=== PATIENT | male | born 1970 | race Caucasian/White ===

== ENCOUNTER → 2021-04-08 08:52 | Outpatient (POV) | payer OTHER, SELFPAY | PROVIDERS: Visit Provider Dermatology | DX: Z00.00 Encounter for general adult medical examination without abnormal findings (principal) ==

== ENCOUNTER → 2021-05-12 15:49 | Outpatient (CLI) | payer OTHER, SELFPAY | PROVIDERS: PCP Family Medicine; Visit Provider Family Medicine | DX: Z20.822 Contact with and (suspected) exposure to COVID-19 (principal) | CPT/HCPCS: U0003 ==

== ENCOUNTER → 2021-05-27 16:10 | Outpatient (CLI) | payer OTHER, SELFPAY ==
--- NOTE | 2021-05-27 16:14 | XR_ITS ---
PROCEDURE: XR FOOT LT MIN 3V CLINICAL INDICATION: PAIN OF LT HEEL COMPARISON: No exams were available for comparison FINDINGS: No fracture or dislocation. No lytic or blastic change. There is normal mineralization. The joint spaces are well-preserved. No significant degenerative/arthritic changes. No erosive changes evident. Other findings:There is a tiny calcaneal spur IMPRESSION: No acute findings. Dictated by: Onesimo John MD 05/27/2021 18:06 Onesimo John MD in [place] 05/27/2021 18:06
== END ==
PROVIDERS: PCP Family Medicine; Visit Provider Family Medicine
DX: M79.672 Pain in left foot (principal)
CPT/HCPCS: 73630

== ENCOUNTER → 2021-06-02 10:39 | Outpatient (CLI) | payer OTHER, SELFPAY | PROVIDERS: PCP Family Medicine; Visit Provider Nurse Practitioner | DX: Z20.822 Contact with and (suspected) exposure to COVID-19 (principal) | CPT/HCPCS: C9803; U0003; U0005 ==

== ENCOUNTER → 2021-07-21 08:10 | Outpatient (CLI) | payer OTHER, SELFPAY | PROVIDERS: PCP Family Medicine; Visit Provider Nurse Practitioner | DX: Z20.822 Contact with and (suspected) exposure to COVID-19 (principal) | CPT/HCPCS: C9803; U0003; U0005 ==

== ENCOUNTER 2021-07-23 06:32 | Day surgery (SDC) | payer OTHER, SELFPAY ==
[2021-07-23 06:48] VITALS: BMI 34.7
[2021-07-23 06:51] VITALS: BP 135/94; PULSE 98; RESP 18; TEMP 36.1; O2SAT 97
[2021-07-23 07:23] VITALS: O2SAT 100
--- NOTE | 2021-07-23 07:30 | P.PN_ITS ---
[facility] Anesthesia Checklist - Patient Identification Patient Identification: Arm Band - Structural Data Admitted From: Home Planned Operative Procedure/s: colonoscopy Consent for Planned Operative Procedure(s) Verified: Yes Verified Documents: Surgical Consent, History and Physical - NPO Status Verified Time NPO: 00:00 - Additional verifications Anesthesia Reactions: No - Airway Assessment C-Spine Mobility Assessed: Yes (mp2) TMJ Mobility Assessed: Yes Dentition: Good Dentition - Neurological Assessment Level of Consciousness: Awake, Alert - Anesthesia Plan Anesthesia Risk discussed: Yes Anesthesia Plan: Verified ASA Class: II Anesthesia Type: MAC [facility] History I have reviewed the patient's past medical history: Yes Medical History: Reports:: Arrhythmia, Hypertension, Palpitations Denies:: Cancer, Diabetes Mellitus Type 1, Diabetes Mellitus Type 2, Internal Pacemaker, MRSA, Seizures *Have you ever received a pneumonia vaccine?: No *Have you received a flu vaccine this season?: Yes Anesthesia experience/problems:: nac Other Surgeries: Yes: Other. No: Pacemaker Amputation: No Fractures: No - *Social History Last grade of school completed: High school graduate Smoking Status: Never smoker Alcohol Intake: current Alcohol Intake Frequency:: holidays/special occasions only Substance Use Type: denies use *Occupational Status:: employed *Travel in the last 8 weeks: None Family Hx:: No significant family history
--- NOTE | 2021-07-23 07:46 | HMH.SCOPE ---
- Procedure: Date: 07/23/21 Patient Date of :: 1970 Procedure Performed:: Colonoscopy to terminal ileum with polypectomy by snare and biopsy forceps Indications:: 51-year-old male referred by Dr. Rodriguez for initial screening colonoscopy. Asymptomatic. He does have an uncle who had colon cancer. Performing Provider:: Justus Cronin MD Referring Provider:: Saurabh Rodriguez MD Sedation:: MAC sedation Procedure:: Patient was positioned in lateral decubitus position. Adequate intravenous sedation was achieved. Digital examination was performed which revealed normal sphincter tone. Variable stiffness Olympus colonoscope was inserted via the anus. It was advanced to the cecum. Colonic preparation was good and visualization was good. Within the cecum behind the ileocecal valve there was a moderate adenomatous polyp measuring 8 to 10 mm. This was removed with cold cutting snare. Colonoscope was able to be advanced briefly short distance into the ileocecal valve. Colonoscope was slowly withdrawn through the colon with careful surveillance. Within the sigmoid colon there were 2 small to moderate pedunculated adenomatous appearing polyps removed with cold snare. In the rectosigmoid colon there was a sessile small adenomatous appearing polyp removed with cold snare. There was additional hyperplastic appearing polyp removed with biopsy forceps. Retroflexion within the rectum revealed nonpathologic internal hemorrhoids. Colonoscope was withdrawn. Findings:: Polyps as noted above Recommendations:: Likely repeat colonoscopy 3 years Complications:: None immediately apparent Estimated blood obtained (mL): 3
[2021-07-23 07:48] VITALS: BP 148/94; PULSE 92; RESP 18; TEMP 36.4; O2SAT 96
[2021-07-23 07:58] VITALS: BP 158/111; PULSE 94; RESP 18; O2SAT 94
[2021-07-23 08:08] VITALS: BP 163/100; PULSE 92; RESP 16; O2SAT 97
[2021-07-23 08:18] VITALS: BP 174/108; PULSE 94; RESP 16; O2SAT 98
== END 2021-07-23 08:20 | disposition home or self-care (01) ==
LOC: OUTP 06:34
PROVIDERS: PCP Family Medicine; Visit Provider Surgery
PROC: 0DJD8ZZ Inspection of Lower Intestinal Tract, Via Natural or Artificial Opening Endoscopic (ICD-10-PCS; CPT 45385; principal; 2021-07-23 07:30)
DX: Z12.11 Encounter for screening for malignant neoplasm of colon (principal); K63.5 Polyp of colon; I49.9 Cardiac arrhythmia, unspecified; I10 Essential (primary) hypertension; R00.2 Palpitations; Z79.899 Other long term (current) drug therapy
CPT/HCPCS: 45385; 45380; J2405; J2710

== ENCOUNTER → 2021-07-24 08:01 | Outpatient (CLI) | payer OTHER, SELFPAY | PROVIDERS: PCP Family Medicine; Visit Provider Nurse Practitioner | DX: Z20.822 Contact with and (suspected) exposure to COVID-19 (principal); U07.1 COVID-19 | CPT/HCPCS: C9803; U0003; U0005 ==

== ENCOUNTER → 2021-10-27 13:32 | Outpatient (CLI) | payer OTHER, SELFPAY | PROVIDERS: PCP Family Medicine; Visit Provider Nurse Practitioner | DX: U07.1 COVID-19 (principal) | CPT/HCPCS: C9803; U0003; U0005 ==

== ENCOUNTER → 2023-08-04 12:05 | Outpatient (CLI) | payer BC, OTHER, SELFPAY | PROVIDERS: PCP Family Medicine; Visit Provider Internal Medicine | DX: I49.3 Ventricular premature depolarization (principal); R06.00 Dyspnea, unspecified; R94.31 Abnormal electrocardiogram [ECG] [EKG] | CPT/HCPCS: 93270 ==

== ENCOUNTER → 2023-08-10 09:14 | Outpatient (POV) | payer BC, SELFPAY | PROVIDERS: PCP Family Medicine; Visit Provider Dermatology | DX: Z00.00 Encounter for general adult medical examination without abnormal findings (principal) ==

== ENCOUNTER → 2023-08-18 06:58 | Outpatient (CLI) | payer BC, OTHER, SELFPAY ==
--- NOTE | 2023-08-18 07:01 | CA_ITS ---
APPROVED REPORT EXAM: Comprehensive 2D, Doppler, and color-flow Echocardiogram Asphalt Paving Foreman: RICK Velez, RVS Ht: 6 ft 2 in Wt: 280lbs BSA: 2.51 BP: 128/93 mmHg Rhythm: PVC's Indications: PVC's, Old MA per abnormal EKG, Dyspnea, fatigue 2D Dimensions IVSd 0.96 cm LVEF (Visual) 61.40 % PWd 0.89 cm LA Volume 62.10 mL LVDd 4.62 cm LA Volume Index 24.20 mL/m2 (M/F) 16-34 LVDs 3.10 cm Left Atrium 3.70 cm M-Mode Dimensions RVDd 2.39 cm (0.9-2.6) LA Diam 3.90 cm (1.9-4.0) LVDd 5.02 cm (3.5-5.7) LVDs 3.42 cm (3.5-5.7) IVSd 0.78 cm (0.6-1.1) PWd 0.78 cm (0.6-1.1) EF (Teich) 59.70% EPSs 0.86 cm FS 31.90% EDV (Teich) 119.30 mL TAPSE 1.61 (<1.7) ESV (Teich) 48.10 mL LV Diastology E Decel Time 143 (160-240 msec) E/A Ratio 1.08 MED A' 11.70 cm/s LAT A' 12.20 cm/s Aortic Valve ANN Index 1.04 cm2/m2 AoV Peak Tavon. 140.0 (50-130 cm/s) AO Peak GR. 7.90 mmHg AO Mean GR. 3.90 (<5 mmHg) AO VTI 24.5 (18-25 cm) ANN (VTI) 2.67 (2.5-4.5 cm2) Mitral Valve MV A Velocity 74.0 (40-130 cm/s) E/A Ratio 1.08 Tricuspid Valve TR P. Velocity 203.00 cm/s RAP Estimate 10.00 mmHg RVSP 26.50 mmHg Left Ventricle The left ventricle is normal size. The left ventricular systolic function is normal. The left ventricular ejection fraction is within the normal range. There is normal left ventricular wall thickness. There is moderate hypokinesis of the basal inferior and inferolateral LV shaw. The left ventricular diastolic function is normal. LVEF is 55%. Right Ventricle The right ventricle is normal size. The right ventricular systolic function is normal. Atria The left atrium size is normal. The right atrium size is normal. The interatrial septum is not well-visualized. Aortic Valve The aortic valve opens well. There is no aortic valvular stenosis. Trace aortic regurgitation. Mitral Valve The mitral valve is normal in structure. No evidence of mitral valve stenosis. Trace mitral regurgitation. Tricuspid Valve The tricuspid valve leaflets are thin and pliable. Trace tricuspid regurgitation. There is insufficient TR jet to estimate RVSP. Pulmonic Valve The pulmonary valve is normal in structure. Trace pulmonic regurgitation. Great Vessels The aortic root is normal in size. The ascending aorta is normal in size. IVC is normal in size and collapses >50% with inspiration. Pericardium There is no pericardial effusion. Other Information Study Quality: Fair Conclusion Normal biventricular systolic function. Moderate hypokinesis of the basal inferior and inferolateral LV shaw. No significant valvular stenosis or regurgitation. Electronically signed by : Debbie Norman MD 08/21/2023 21:22:04
--- NOTE | 2023-08-18 08:25 | NM_ITS ---
APPROVED REPORT Exam: Nuclear Stress Test Indication: palpiatations..fatigue..high bp Patient Location: Outpatient Stress Tech: Sandra Griffin [place] Tech:LOKI Ledezma RT(R)(N) Ht: 6 ft 2 in Wt: 280 lbs HR: 96 bpm BP: 132/89 mmHg BSA: 2.51 m2 BMI: 35.9 History: palpiatations..fatigue..high bp Procedure: Patient exercised on Cali protocol 9:30 minutes and sec, resting heart rate 96 bpm, resting blood pressure 132/89 mmHg, with exercise maximum heart rate achived was 155 bpm which is 92 % of the maximum predicted heart rate and blood pressure was 216/84 mmHg. Test was stopped due to fatigue. Patient denied any complaint of chest pain. Patient has exercise capacity, achieved 10.1 METs of workload on treadmill, the blood pressure response to exercise was . Cardiac Stress and Resting SPECT Images: Cardiac Stress and Resting SPECT images were obtained using technetium 99m Myoview 32.5 mCi stress and 10.42 mCi at rest. Raw images demonstrate significant soft tissue overlap with the cardiac borders. This may affect the diagnostic interpretation of the study findings. Resting and stress imaging in supine position demonstrate a small sized, moderate, fixed perfusion defect in the basal inferior LV wall. This is no longer visualized with prone stress imaging. Findings are suggestive of diaphragmatic attenuation. Gated imaging demonstrates normal global and regional LV systolic function. LVEF is calculated at 74%. Conclusion: Diaphragmatic attenuation is present. No definite evidence of fixed or reversible perfusion defect. Gated imaging demonstrates normal global and regional LV systolic function. LVEF is calculated at 74%. Electronically signed by : Debbie Norman MD 08/19/2023 15:24:57
--- NOTE | 2023-08-18 09:26 | CA_ITS ---
APPROVED REPORT Exam: Exercise Treadmill Technologist: Sandra Rosario, Ht: 6 ft 2 in Wt: 292 lbs BSA: 2.55 m2 HR: 96 bpm BP: 120/84 mmHg Rhythm: NSR Medical History Medications: HCTZ,,,,, TAMSULOSIN,,,,, Vitamin D2,,,,, CetIRIZINE,,,,, AZelastine,,,,, Amlodipine-Benazepril,,,,, Qnasl,,,,, Stress Test Details Test: Cali HR Resting HR: 96 bpm Max Heart Rate (APMHR): 168 bpm Max HR Achieved: 155 bpm Target HR (85% APMHR): 143 bpm % of APMHR: 92 Recovery HR: 115 bpm HR response to stress: Normal HR response to stress BP Resting BP: 132.0/89.0 mmHg Max BP: 216.0/84.0 mmHg Recovery BP: 130.0/78.0 mmHg BP response to stress: Abnormal hypertensive response to stress. ECG Resting ECG: NSR, ST-T abns inferiorly & laterally Stress ECG: < 0.[address] depression Arrhythmia: PACs, PVCs Recovery ECG: Return to baseline within 3 minutes of recovery Recovery Arrhythmia: PACs, PVCs Clinical Exercise duration: 09:30 min Highest Stage Achieved: IV Exercise capacity: 10.1 METs Overall Exercise Capacity for Age: Average Stress ECG Conclusion The patient was able to exercise for a total of 9 minutes, 30 seconds. He has average exercise capacity compared to age and sex matched peers. He has normal HR, but exaggerated hypertensive BP, response to exercise Max HR: 155 % of PM: 92% Max BP: 216/84 METs: 10.1 Test stopped due to: SOA, fatigue Symptoms: No CP. Arrhythmias/Ectopy: Occasional PACs, PVCs ST-T Changes: < 0.[address] depression Conclusion: Average exercise capacity. Hypertensive response to exercise. Baseline ECG abnormalities, but no significant changes at peak stress. Myoview images reported separately. Test Summary REST . . . . . . . Sitting REST . . . . . . . Standing REST 02:58 0.0 0.0 96 . 132/ 89 . . Stage 1 01:00 10.0 1.7 108 . . . . Stage 1 02:00 10.0 1.7 114 . . . . Stage 1 03:00 10.0 1.7 117 . 166/ 86 . . Stage 2 01:00 12.0 2.5 126 . . . . Stage 2 02:00 12.0 2.5 130 . . . . Stage 2 03:00 12.0 2.5 133 . 204/ 84 . . Stage 3 01:00 14.0 3.4 142 . . . . Stage 3 02:00 14.0 3.4 147 . . . . Stage 3 . . . . . . . Myoview Injected Stage 3 03:00 14.0 3.4 149 . 216/ 84 . . Stage 4 00:30 16.0 4.2 155 . . . Stop exercise at 09:30 RECOVERY 01:00 0.0 0.0 142 . . . . RECOVERY 02:00 0.0 0.0 128 . . . . RECOVERY 03:00 0.0 0.0 123 . 138/ 84 . . RECOVERY 04:00 0.0 0.0 118 . 138/ 84 . . RECOVERY 05:00 0.0 0.0 116 . 143/ 81 . . RECOVERY 05:42 0.0 0.0 116 . 130/ 78 . . Electronically signed by : Debbie Norman MD 08/19/2023 15:23:08
== END ==
PROVIDERS: PCP Family Medicine; Visit Provider Internal Medicine
DX: I49.3 Ventricular premature depolarization (principal); R06.00 Dyspnea, unspecified; R94.31 Abnormal electrocardiogram [ECG] [EKG]
CPT/HCPCS: 78452; 93017; 93018; 93306; A9502

== ENCOUNTER 2023-09-21 07:54 | Outpatient (CLI) | payer BC, OTHER, SELFPAY ==
[2023-09-21] VITALS (8 sets, daily range): BP systolic 99–145; BP diastolic 60–105; PULSE 65–83; RESP 18; TEMP 36.2; O2SAT 92–98; BMI 36.6
--- NOTE | 2023-09-21 07:54 | CT_ITS ---
APPROVED REPORT Button Spindler: CLINICAL INDICATION Chest Pain TECHNIQUE Image Acquisition: A 128 slice MDCT scanner ([place] View) was used for data acquisition. A noncontrast coronary calcium scan was performed. A CT attenuation threshold of 130 Hounsfield units (HU) was used for the detection of calcium in contiguous voxels of 1 sq mm in area to be counted as individual lesions. Bolus tracking in the ascending aorta with a threshold of 180 HU was performed. Immediately afterwards, ECG synchronized cardiac CT was then performed from the cardiac base to apex using retrospective gating with ECG tube current modulation. A total of 85 mL of Isovue 370 mg/mL contrast medium was administered at 5 mL/sec followed by a saline flush using a biphasic injection protocol. A tube voltage of 120 KVp was used. The patient received the following medications prior to the cardiac CT. 100 mg of oral metoprolol 15 mg of intravenous metoprolol 0.8 mg of sublingual nitroglycerin The average heart rate at the time of acquisition was 63 bpm and regular. Image Reconstruction Transaxial images were reconstructed at 0.67 mm slide thickness. Data was reviewed interactively on an advanced workstation capable of 2 and 3-dimensional displays in all conventional reconstruction formats, including multiplanar reformations, maximum intensity projections, curved multiplanar reformations, and volume rendered reconstructions. When applicable, selected routine images describing the relevant coronary anatomy and pathology were saved and sent to PACS. Complications None Technical Quality Overall image quality was good. Coronary artery opacification was adequate. Total DLP (Dose-Length Product) is 1072.6 mGy-cm. The reported value represents the total of one or more individual components during the CT acquisition of this date and at this time, and as such, the same value may appear in more than one CT report depending on the interpreting/reporting physicians. COMPARISON None FINDINGS CT Coronary Calcium Scoring LMA (Left Main Artery) = 0 LAD (Left Anterior Descending) = 0 LCX (Left Coronary Circumflex) = 0 RCA (Right Coronary Artery) = 0 Total Calcium Score = 0 using the AJ-130 method. The interpretation of the calcium heart score is based on the following continuum*: 0 = no calcified plaque detected (risk of coronary artery disease is very low ??? less than 5%) 1-10 = calcium detected in extremely minimal levels (risk of coronary diseases is still low ??? less than 10%) 11-100 = mild levels of plaque detected with certainty (mild or minimal narrowing of heart arteries is likely) 101-400 = definite,at least moderate levels of plaque detected (relatively high risk of a heart attack within 3-5 years) >401-999 = extensive levels of plaque detected (high risk of heart attack, high levels of vascular disease are present, high likelihood of at least one significant coronary narrowing) *The calcium heart score quantifies the burden of coronary calcification/plaque in the coronary arteries. The calcium heart score is not able to evaluate the presence or burden of non-calcified (i.e. soft) plaque. There is no identifiable calcification in the aortic valve, mitral annulus or mitral valve, pericardium, or myocardium. Coronary CT Angiography The coronary arterial system is right dominant. Quantitative Stenosis Grading: Left Main (LM): The left main originates normally from the left sinus of Valsalva. The LM trifurcates into the left anterior descending artery and left circumflex artery. The LM is patent with no evidence of atherosclerosis. Left Anterior Descending (LAD) and Diagonal Branches: The LAD gives off 3 diagonal branches. The LAD and its branches are patent with no evidence of atherosclerosis. There is a mid-LAD bridge measuring 8 mm in length and 0.5 mm in depth. Ramus-intermedius (RI): The RI is patent. Left Circumflex (LCX) and Obtuse Marginals (OM): The LCX gives off 1 Obtuse Marginal (OM) branch. The LCX and its branches are patent with no evidence of atherosclerosis. Right Coronary Artery (RCA): The RCA originates normally from the right sinus of Valsalva. The RCA gives off a posterior descending artery (PDA) and posterolateral (PL) branches. The RCA and its branches are patent with no evidence of atherosclerosis. Non-Coronary Cardiac Findings: Analysis of the left ventricular (LV) structure and function was performed after 3-D reconstruction of the LV from axial images, with user-corrected automatic contouring for assessment of LV volumes and user-defined reconstruction from oblique planes for measurement of 3-D cardiac structure and function. LVEDV: 195 mL LVESV: 94 mL SV: 101 mL LVEF: 52% -The left ventricle is normal in size with normal left ventricular systolic function. -There is a distal left atrial appendage filling defect (true filling defect vs. inadequate contrast filling in the distal IZAIAH). Two right pulmonary veins and two left pulmonary veins drain normally into the left atrium. -No pericardial thickening or calcification. -Central and branch pulmonary arteries in the [id number] are unremarkable. -Thoracic aorta within the visualized thoracic aortic-branches in the [id number] is unremarkable. Extracardiac Structures No significant extra-cardiac findings. IMPRESSION -No coronary calcification with an Agatston score = 0 using the AJ-130 method. -No evidence of significant flow-limiting atherosclerosis of the coronary arteries. -Mid-LAD bridge measuring 8 mm in length and 0.5 mm in depth. -CAD-RADS 0. Management recommendations per ACC/AHA guidelines*, as clinically appropriate. -No significant non-coronary cardiac findings in the visualized segments of the chest. -Distal left atrial appendage filling defect (likely inadequate contrast filling in the IZAIAH due to timing of contrast administration, but cannot rule out IZAIAH thrombus). *Recommendations: CAD RADS 0: Reassurance. Consider non-atherosclerotic causes of chest pain. CAD RADS 1: Consider non-atherosclerotic causes of chest pain. Consider preventive therapy and risk factor modification. CAD RADS 2: Consider non-atherosclerotic causes of chest pain. Consider preventive therapy and risk factor modification, particularly for patients with nonobstructive plaque in multiple segments. CAD RADS 3: Consider further functional testing. Consider symptom-guided anti-ischemic and preventive pharmacotherapy as well as risk factor modification per published guideline statements. CAD RADS 4A: Consider further functional testing or invasive coronary angiography with revascularization per published guideline statements. Consider symptom-guided anti-ischemic and preventive pharmacotherapy as well as risk factor modification per published guideline statements. CAD RADS 4B: Invasive coronary angiography recommended with revascularization per published guideline statements. Consider symptom-guided anti-ischemic and preventive pharmacotherapy as well as risk factor modification per published guideline statements. CAD RADS 5: Consider invasive angiography and/or viability assessment with revascularization per published guideline statements. Consider symptom-guided anti-ischemic and preventive pharmacotherapy as well as risk factor modification per published guideline statements. CRITICAL RESULT None COMMUNICATION Per this written report The coronary and cardiac findings of this CCTA were reviewed, reported, and signed by Regan Norman MD (Underwater Roboticist) Conclusion Electronically signed by : Debbie Norman MD 09/22/2023 12:58:20
[2023-09-21] MEDS: METOPROLOL TARTRATE 50MG TABLET 100 MG PO (08:30)
[2023-09-21 08:46] LABS: Anion Gap 6.3 mEq/L (5-15); Blood Urea Nitrogen 8 mg/dl (9-20); Calcium 8.2 mg/dl (8.4-10.2); Carbon Dioxide 34 mmol/L (22.0-30.0); Chloride 97 mmol/L (98-107); Creatinine Clearance Estimated 176 mL/min (50-200); Estimated Glomerular Filt Rate 89 ml/min (>60); GFR (African American) 107 ML/MIN (>60); Glucose 116 mg/dl (74-100); Potassium 3.3 mmoL/L (3.5-5.1); Sodium 134 mmol/L (136-145)
[2023-09-21] MEDS: METOPROLOL TARTRATE 5MG/5ML VIAL 5 MG IV ×3 (09:23→09:53)
[2023-09-21] MEDS: NITROGLYCERIN 0.4MG SL TABLET 0.800000000000000044 MG SL (09:40)
[2023-09-21] MEDS: 0.9 % SODIUM CHLORIDE 50 ML VIAL IV (10:04)
[2023-09-21] MEDS: IOPAMIDOL-370 (76%);100ML BOTTLE 85 ML IV (10:04)
[2023-09-21] MEDS: SODIUM CHLORIDE 0.9% 10ML SYR (RAD ONLY) 10 ML IV (10:04)
== END 2023-09-21 23:59 | disposition home or self-care (01) ==
PROVIDERS: PCP Family Medicine; Visit Provider Internal Medicine
DX: R06.09 Other forms of dyspnea (principal); R94.31 Abnormal electrocardiogram [ECG] [EKG]; I49.3 Ventricular premature depolarization; I10 Essential (primary) hypertension; R93.1 Abnormal findings on diagnostic imaging of heart and coronary circulation
CPT/HCPCS: 75571; 75574; 80048; Q9967

== ENCOUNTER 2023-11-09 09:38 | Outpatient (POV) | payer BC, SELFPAY | END 2023-11-09 23:59 | disposition home or self-care (01) | LOC: SC 09:38 | PROVIDERS: PCP Family Medicine; Visit Provider Dermatology | DX: Z00.00 Encounter for general adult medical examination without abnormal findings (principal) ==

== ENCOUNTER 2024-03-31 06:23 | Day surgery (SDC) | payer BC, SELFPAY ==
[2024-03-29 13:28] VITALS: BMI 32.7
[2024-03-31] VITALS (7 sets, daily range): BP systolic 100–117; BP diastolic 56–69; PULSE 69–83; RESP 12–18; TEMP 36.2–36.6; O2SAT 92–97
[2024-03-31] MEDS: LACTATED RINGERS 1000ML 1,000 ML 25 ML IV (06:49)
--- NOTE | 2024-03-31 07:07 | P.PNANES_ITS ---
[facility] Disclaimer: The information contained in this section may have been updated after the patient was seen, as this information can be updated by other users. Medical History Adrenal nodule Kidney stone PVC (premature ventricular contraction) History of COVID-19 Allergies Regional wall motion abnormality of heart Surgical History Hx of vasectomy Family History Other Colon cancer Family history of stroke Social History Smoking Status: Never smoker alcohol intake: never substance use type: denies use current occupational status: retired Travel in the last 8 weeks: None caffeine: Yes [facility] Anesthesia Checklist Patient Identification Patient Identification: Arm Band, Family and Verbal (Name & ) Structural Data Admitted From: Home Planned Operative Procedure/s: Colonoscopy Consent for Planned Operative Procedure(s) Verified: Yes Verified Documents: Surgical Consent and History and Physical NPO Status Verified Time NPO: 03:00 Chart Verification Results Verified: BMP and ECG Additional verifications Patient : No Anesthesia Reactions: No Hx Blood Transfusions: No Blood Transfusion Reaction: No Cardiovascular Assessment Heart Sounds: S1 & S2 Pulse Rhythm: Irregular Peripheral Edema: No Airway Assessment Mallampati Score:: Class II C-Spine Mobility Assessed: Yes (FROM) TMJ Mobility Assessed: Yes Dentition: Good Dentition (Nothing loose per pt.) Neurological Assessment Level of Consciousness: Awake, Alert, Appropriate and Follows Commands Hx Seizures: No Numbness or tingling in extremities: No Anesthesia Plan Anesthesia Risk discussed: Yes Anesthesia Plan: Verified ASA Class: II Anesthesia Type: MAC
--- NOTE | 2024-03-31 07:12 | HMH.SCOPE ---
Procedure: Date: 03/31/24 Patient Date of :: 1970 Procedure Performed:: Total colonoscopy to terminal ileum with multiple polypectomy Indications:: Patient is a 53 yo male who underwent colonoscopy on 07/23/21 as initial screening colonoscopy. He had an 8-10mm tubular adenoma in the cecum and a tubular adenoma in the sigmoid colon. Recommendation was for repeat colonoscopy within 3 years. However, in the interim the patient's mother had developed aggressive widespread colon cancer which lead to her demise. Performing Provider:: Justus Cronin MD Referring Provider:: Srikanth Mesa MD Sedation:: MAC Sedation Procedure:: Patient history was obtained and appropriate physical examination was performed. Patient's medications and allergies were reviewed. Informed consent was obtained after explaining the benefits, alternatives, and risks of the procedure including, but not limited to, bleeding, perforation, missed lesions, and adverse reaction to anesthesia medications. Patient was transported to endoscopy procedure room. Patient was connected to monitoring devices. Throughout the procedure the patient's blood pressure, pulse, and oxygen saturations were monitored continuously. Patient identification and planned procedure were verified by the staff. Patient was positioned in lateral decubitus position. Digital anorectal exam was performed. Variable stiffness Olympus colonoscope was inserted and advanced under direct visualization to the cecum. Adequacy of the colonic preparation was noted. The colonoscope was advanced a short distance into the ileocecal valve. The colonoscope was then slowly withdrawn while carefully examining the color, texture, anatomy, and integrity of the mucosoa circumferentially. Within the rectum retroflexion was performed. Colonoscope was then withdrawn. IMPRESSION: There was some redundancy to the sigmoid colon. Colonoscope was advanced to ileocecal valve. In the cecum there was a sessile adenomatous polyp removed with cold snare. In the ascending colon near the hepatic flexure there were 3 small polyps removed with biopsy forceps. In the descending colon there was an area along the ridge of mucosal irregularity. Initially this was biopsied but then it was felt that this was possibly adenomatous. It was raised with Eleview injection. Then removed with hot snare. Limited amount of Betty ink was injected submucosally to daiana the area. Additional polypoid tissue was removed with biopsy forceps. There was some minor oozing and hemoclip was deployed to insure good hemostasis. In the descending colon there was a small polyp removed with biopsy forceps. In the proximal sigmoid colon there was a small polyp removed with biopsy forceps. There was a pedunculated polyp in the sigmoid, obviously adenomatous, removed with hot snare. This required withdrawal of the colonoscope with the polyp for retrieval. The colonoscope was then reinserted to the polypectomy site. In the distal sigmoid colon there were two small polyps removed with biopsy forceps. Retroflexion in the rectum revealed a hyperplastic appearing polyp removed with biopsy forceps. . Findings:: Polyps as noted above . Recommendations:: Repeat colonoscopy pending pathology. Likely 1-2 years giving early development of polyps and family history. If the descending ridge polyp is adenomatous recommend 1 year. . Complications:: None immediately apparent. Estimated blood obtained (mL): 4 Colonoscopy Component Colonoscopy Component Was a colonoscopy performed during today's procedure?: Yes Recommended follow up colonoscopy of at least 10 years?: No If no, follow up colonoscopy recommended in ___ years?: See above Reason for not recommending >/= 10 yr follow-up interval?: See above
--- NOTE | 2024-03-31 08:30 | EXP.ANES.I ---
[facility] Anesthesia Record Part I Anesthesia Record I Intake, IV Amount: 700 Hydration: Adequate Estimated blood loss (mL): 5 Urine output (mL): 0 Blood Products used (#): none Blood Pressure: 101/69 SaO2: 92 Pulse Rate: 78 Airway Patency: Patent Respiratory Rate: 16 Temperature: 97.3 F Patient is:: Drowsy and Stable Stable to PACU at:: 08:36
== END 2024-03-31 09:01 | disposition home or self-care (01) ==
PROVIDERS: PCP Family Medicine; Visit Provider Surgery
PROC: 0DJD8ZZ Inspection of Lower Intestinal Tract, Via Natural or Artificial Opening Endoscopic (ICD-10-PCS; CPT 45385; principal; 2024-03-31 07:30)
DX: D12.2 Benign neoplasm of ascending colon; D12.0 Benign neoplasm of cecum; D12.4 Benign neoplasm of descending colon; D12.5 Benign neoplasm of sigmoid colon
CPT/HCPCS: 45385; 45380; J2704; J7120

== ENCOUNTER 2024-05-23 15:46 | Outpatient (POV) | payer BC, SELFPAY | END 2024-05-23 23:59 | disposition home or self-care (01) | LOC: SC 15:46 | PROVIDERS: PCP Family Medicine; Visit Provider Dermatology | DX: Z00.00 Encounter for general adult medical examination without abnormal findings (principal) ==

== ENCOUNTER 2024-06-23 16:09 | Outpatient (CLI) | payer BC, SELFPAY ==
[2024-06-25 09:09] LABS: PSA, Free 0.25 ng/mL; Prostate Specific Ag 0.8 ng/mL (0.0-4.0)
== END 2024-06-23 23:59 | disposition home or self-care (01) ==
LOC: LAB 16:10
PROVIDERS: PCP Family Medicine; Visit Provider Nurse Practitioner
DX: R97.20 Elevated prostate specific antigen [PSA] (principal)
CPT/HCPCS: 36415; 84153; 84154

== ENCOUNTER 2025-04-06 06:40 | Day surgery (SDC) | payer BC, SELFPAY ==
[2025-04-03 14:45] VITALS: BMI 32.1
--- NOTE | 2025-04-06 06:13 | EXP.GEN.HP ---
HPI HPI HPI: Patient presents for follow-up colonoscopy. I had performed initial screening colonoscopy 07/23/2021 at which time he had approximately 10 mm tubular adenoma in the cecum and tubular adenoma in the sigmoid colon. In the interim his mother had developed an aggressive widespread colon cancer which ultimately led to her demise. He also has a paternal uncle who had colon cancer. I did follow-up colonoscopy on 03/31/2024 which revealed multiple polyps. He had 4 tubular adenomas and 6 serrated adenomas. Given the aggressive colon cancer in first-degree relative with the early interval development of numerous adenomatous polyps I recommend a repeat colonoscopy in 1 year with particular assessment of the polypectomy site in the descending colon along the ridge which required submucosal injection and removal with hot snare. This area was marked with Betty ink. [facility] Disclaimer: The information contained in this section may have been updated after the patient was seen, as this information can be updated by other users. Medical History Adrenal nodule Kidney stone PVC (premature ventricular contraction) History of COVID-19 Allergies Regional wall motion abnormality of heart Surgical History (Updated 04/03/25 @ 14:47 by Fay Alex RN) History of bunionectomy of left great toe History of colonoscopy Hx of vasectomy Family History Other Colon cancer Family history of stroke Social History Smoking Status: Never smoker alcohol intake: never substance use type: denies use current occupational status: retired Travel in the last 8 weeks?: None caffeine: Yes Other Medical History Have you received the Flu Vaccine for this season: No Have you received the Pneumonia Vaccine: No Meds Home Medications and Allergies Home Medications ?Medication ?Instructions ?Recorded ?Confirmed ?Type cetirizine 10 mg capsule (Zyrtec) 10 mg PO DAILY ALLERGIES 07/23/21 04/03/25 History hydrochlorothiazide 25 mg tablet 25 mg PO DAILY 08/26/21 04/03/25 History amlodipine 10 mg-benazepril 40 mg 1 cap PO DAILY 08/04/23 04/03/25 History capsule (Lotrel) azelastine 137 mcg (0.1 %) nasal 137 mcg intranasal BID 08/04/23 04/03/25 History spray beclomethasone dipropionate 80 80 mcg intranasal BID 08/04/23 04/03/25 History mcg/actuation nasal HFA inhaler (QNASL) ergocalciferol (vitamin D2) 1,250 1,250 mcg PO WEEKLY 08/04/23 04/03/25 History mcg (50,000 unit) capsule (Vitamin D2) testosterone cypionate 200 mg/mL 200 mg IM .BI WEEKLY 10/04/23 04/03/25 History intramuscular oil minoxidil 2.5 mg tablet 2.5 mg PO DAILY 03/29/24 04/03/25 History rosuvastatin 5 mg tablet 5 mg PO DAILY 03/31/24 04/03/25 History semaglutide (weight loss) 1.7 1.7 mg SQ QOW 10/04/24 04/03/25 History mg/0.75 mL subcutaneous pen injector (Wegovy) sodium,potassium,mag sulfates 17.5 See Rx Instructions PO .COMPLEX 03/22/25 Rx gram-3.13 gram-1.6 gram oral soln #354 mL (Suprep Bowel Prep Kit) New Prescriptions to Start Prescriptions: Allergies Allergy/AdvReac Type Severity Reaction Status Date / Time No Known Allergies Allergy Verified 04/03/25 14:40 Exam Data for Last 24 hours I & O for Last 24 hours: Intake & Output 04/03/25 04/04/25 04/05/25 04/06/25 11:59 11:59 11:59 11:59 Weight 250 lb Constitutional Constitutional: no acute distress *Routine HEENT Exam Head: Present normocephalic Eye: Present EOMI and PERRL ENT: Present mucous membranes moist *Routine Neck Exam Neck: Present supple; Absent lymphadenopathy *Routine Respiratory Exam Respiratory: Present CTA bilaterally *Routine Cardiovascular Exam Cardiovascular: Present RRR *Routine Abdominal Exam Abdominal: Present soft and normoactive bowel sounds; Absent tenderness *Routine Rectal Exam Rectal:: deferred *Routine Genitalia Exam Genitalia:: deferred *Routine Extremities Exam Extremities: Absent cyanosis, clubbing or edema *Routine Skin Exam Skin: Present warm; Absent rash *Routine Neurological Exam Neurological: Present alert and oriented X3 Assessment and Plan *Assessment and plan (1) Colon polyps: Status: Acute Category: Medical Code(s): K63.5 - Polyp of colon Plan Proceed with follow-up colonoscopy.
[2025-04-06 06:49] VITALS: BP 140/93; PULSE 96; RESP 16; TEMP 36.4; O2SAT 97; BMI 31.8
[2025-04-06] MEDS: LACTATED RINGERS 1000ML 1,000 ML 25 ML IV (07:07)
--- NOTE | 2025-04-06 07:09 | P.PNANES_ITS ---
[facility] Disclaimer: The information contained in this section may have been updated after the patient was seen, as this information can be updated by other users. Medical History Adrenal nodule Kidney stone PVC (premature ventricular contraction) History of COVID-19 Allergies Regional wall motion abnormality of heart Surgical History History of bunionectomy of left great toe History of colonoscopy Hx of vasectomy Family History Other Colon cancer Family history of stroke Social History (Updated 04/06/25 @ 06:56 by Celena Jean RN) Smoking Status: Never smoker alcohol intake: never substance use type: denies use current occupational status: retired Travel in the last 8 weeks?: None caffeine: Yes Have you lived/traveled outside [place] in past 30 days?: No Contact w/someone who lives/traveled outside US past 30 days?: No Exposure to someone with infectious disease in past 14 days?: No Do you have a fever (greater than 100.4 F or 38 C)?: No Have you tested positive for COVID-19?: No Exposed to someone with COVID-19 in past 14 days?: No Do you have a sore throat?: No Do you have a cough?: No Do you have any weakness?: No Are you experiencing any nausea/vomitting?: No Do you have any diarrhea?: No Are you experiencing any unusual bleeding?: No Do you have any muscle aches/pain?: No Do you have any abdominal pain?: No Are you experiencing loss of taste or smell?: No [facility] Anesthesia Checklist Patient Identification Patient Identification: Arm Band Structural Data Admitted From: Home Planned Operative Procedure/s: Colonoscopy Consent for Planned Operative Procedure(s) Verified: Yes Verified Documents: Surgical Consent and History and Physical NPO Status Verified Time NPO: 00:00 Additional verifications Anesthesia Reactions: No Hx Blood Transfusions: No Blood Transfusion Reaction: No Airway Assessment Mallampati Score:: Class II C-Spine Mobility Assessed: Yes TMJ Mobility Assessed: Yes Dentition: Good Dentition Neurological Assessment Level of Consciousness: Awake, Alert and Appropriate Anesthesia Plan Anesthesia Risk discussed: Yes Anesthesia Plan: Verified ASA Class: II Anesthesia Type: MAC
--- NOTE | 2025-04-06 07:55 | HMH.SCOPE ---
Procedure: Date: 04/06/25 Patient Date of :: 1970 Procedure Performed:: Total colonoscopy with polypectomy Indications:: Patient presents for follow-up colonoscopy. I had performed initial screening colonoscopy 07/23/2021 at which time he had approximately 10 mm tubular adenoma in the cecum and tubular adenoma in the sigmoid colon. In the interim his mother had developed an aggressive widespread colon cancer which ultimately led to her demise. He also has a paternal uncle who had colon cancer. I did follow-up colonoscopy on 03/31/2024 which revealed multiple polyps. He had 4 tubular adenomas and 6 serrated adenomas. Given the aggressive colon cancer in first-degree relative with the early interval development of numerous adenomatous polyps I recommend a repeat colonoscopy in 1 year with particular assessment of the polypectomy site in the descending colon along the ridge which required submucosal injection and removal with hot snare. This area was marked with Betty ink. Performing Provider:: Justus Cronin MD Referring Provider:: Srikanth Mesa MD Sedation:: MAC sedation Procedure:: Patient history was obtained and appropriate physical examination was performed. Patient's medications and allergies were reviewed. Informed consent was obtained after explaining the benefits, alternatives, and risks of the procedure including, but not limited to, bleeding, perforation, missed lesions, and adverse reaction to anesthesia medications. Patient was transported to endoscopy procedure room. Patient was connected to monitoring devices. Throughout the procedure the patient's blood pressure, pulse, and oxygen saturations were monitored continuously. Patient identification and planned procedure were verified by the staff. Patient was positioned in lateral decubitus position. Digital anorectal exam was performed. Variable stiffness Olympus colonoscope was inserted and advanced under direct visualization to the cecum. Adequacy of the colonic preparation was noted. The colonoscope was then slowly withdrawn while carefully examining the color, texture, anatomy, and integrity of the mucosoa circumferentially. Within the rectum retroflexion was performed. Colonoscope was then withdrawn. Impression: There was some particulate liquid stool throughout the colon but this was cleared with high-volume trans colonoscopic irrigation and suctioning. In the ascending colon on the proximal side of a fold just distal to the ileocecal valve there was an adenomatous appearing polyp which was somewhat subtle. It was removed with snare with residual tissue removed with biopsy forceps. In the cecum there was a tiny diminutive polyp removed with biopsy forceps. Previous polypectomy site was noted just distal to the splenic flexure. There was some subtle irregularity but this did not appear to be necessarily adenomatous. Several biopsies were obtained of the previous polypectomy site. Just distal to this on the next fold there was what appeared to be subtle polyp which was removed with cold snare with residual tissue removed with biopsy forceps. . Findings:: Polyps as noted above Recommendations:: Follow-up colonoscopy pending pathology. Much of this will depend on the biopsies of the previous polypectomy site. If adenomatous may need early interval repeat colonoscopy. Complications:: None immediately apparent Estimated blood obtained (mL): 2 Colonoscopy Component Colonoscopy Component Was a colonoscopy performed during today's procedure?: Yes Recommended follow up colonoscopy of at least 10 years?: No If no, follow up colonoscopy recommended in ___ years?: See above Reason for not recommending >/= 10 yr follow-up interval?: See above
[2025-04-06 08:07] VITALS: BP 128/84; PULSE 91; RESP 18; TEMP 36.5; O2SAT 94
[2025-04-06 08:15] VITALS: BP 127/71; PULSE 78; RESP 16; O2SAT 98
[2025-04-06 08:28] VITALS: BP 114/71; PULSE 76; RESP 16; TEMP 36.7; O2SAT 98
== END 2025-04-06 08:30 | disposition home or self-care (01) ==
PROVIDERS: PCP Family Medicine; Visit Provider Surgery
PROC: 0DJD8ZZ Inspection of Lower Intestinal Tract, Via Natural or Artificial Opening Endoscopic (ICD-10-PCS; CPT 45380; principal; 2025-04-06 07:30)
DX: D12.2 Benign neoplasm of ascending colon (principal); Z86.0101 Personal history of adenomatous and serrated colon polyps; Z80.0 Family history of malignant neoplasm of digestive organs; D12.0 Benign neoplasm of cecum; Z79.899 Other long term (current) drug therapy; Z79.890 Hormone replacement therapy; Z79.85 Long-term (current) use of injectable non-insulin antidiabetic drugs
CPT/HCPCS: 45380; 45385; J2003; J2704; J7120